=== PATIENT | female | born 2000 | race African-American/Black ===

== ENCOUNTER 2021-03-26 20:06 | Inpatient (IN) | payer OTHER ==
[2021-03-26] MEDS ORDERED: PROMETHAZINE HCL 25 MG/1 ML VIAL IVPUSH ONE (20:40)
[2021-03-26] MEDS ORDERED: BUTORPHANOL TARTRATE 2 MG/ML VIAL IVPUSH ONE (20:40)
[2021-03-26] MEDS ORDERED: OXYTOCIN 30 UNITS in 0.9% NS 30 UNIT/500 ML INFUS.BAG IVPB SCH (21:00)
[2021-03-26] MEDS: DEXTROSE 5%-LACTATED RINGERS 1,000 ML IV SCH (21:30)
[2021-03-26 21:47] LABS: BASO % 0.5 % (0-2.0); EOS % 4.5 % (0-4.5); HEMATOCRIT 29.7 % (32.4-45.2); LYMPH % 23.1 % (8-40); MCH 27.2 pg (25.7-33.7); MCHC 33.7 g/dl (32.0-36.0); MEAN CELL VOLUME 80.8 fl (80-96); MEAN PLT VOLUME 8.8 fl (7.5-11.1); MONO % 10.1 % (3.8-10.2); NEUT % 61.8 % (42.8-82.8); PLATELET COUNT 231 10^3/uL (134-434); RBC 3.68 M/mm3 (3.60-5.2); RDW 13.7 % (11.6-15.6); WHITE BLOOD COUNT 7.8 K/mm3 (4.0-10.0)
[2021-03-26 21:54] LABS: INR 0.97 (0.83-1.09)
[2021-03-26 21:57] LABS: ACTIVATED PTT 27.1 SECONDS (25.2-36.5)
[2021-03-26 22:07] VITALS: BMI 27.3
[2021-03-26 22:11] LABS: CALCIUM 8.8 mg/dL (8.5-10.1)
[2021-03-26 22:12] LABS: BLOOD UREA NITROGEN 4.6 mg/dL (7-18)
[2021-03-26 22:15] LABS: CREATININE 0.4 mg/dL (0.55-1.3)
[2021-03-27] MEDS: DEXTROSE 5%-LACTATED RINGERS 1,000 ML IV SCH (05:15)
[2021-03-27] MEDS ORDERED: PROMETHAZINE HCL 25 MG/1 ML VIAL ONE (08:49)
[2021-03-27] MEDS ORDERED: BUTORPHANOL TARTRATE 2 MG/ML VIAL ONE (08:49)
[2021-03-27] MEDS ORDERED: BUPIVACAINE HCL/PF 0.25% (2.5MG/ML) 10 ML VIAL ONE (15:07)
[2021-03-27] MEDS ORDERED: NALOXONE HCL 0.4 MG/ML VIAL IVPUSH PRN (15:48)
[2021-03-27] MEDS ORDERED: FENTANYL/BUPIVACAINE/NS/PF - PCEA - 50 ML DISP.SYRIN EP SCH (16:00)
[2021-03-27] MEDS ORDERED: FENTANYL/BUPIVACAINE/NS/PF - PCEA - 50 ML DISP.SYRIN EP ONE (16:16)
[2021-03-27] MEDS ORDERED: PCA PUMP NR ONE (16:17)
[2021-03-27] MEDS ORDERED: OXYTOCIN 20 UNITS in 0.9% NS 20 UNIT/1,000 ML INFUS.BAG IV ONE (16:46)
[2021-03-27] MEDS ORDERED: LIDOCAINE HCL 1% PRESERVATIVE FREE - 30ML VIAL ONE (16:46)
[2021-03-27] MEDS ORDERED: BISACODYL 10 MG SUPP.RECT RC PRN (17:36)
[2021-03-27] MEDS ORDERED: BENZOCAINE 28 GM HEMORRHOIDAL OINTMENT TP PRN (17:36)
[2021-03-27] MEDS ORDERED: WITCH HAZEL 50% (TUCKS) 40 PAD/JAR PAD TP PRN (17:36)
[2021-03-27] MEDS ORDERED: BENZOCAINE 20% 57 GM BOTTLE TP PRN (17:36)
[2021-03-27] MEDS ORDERED: IBUPROFEN 600 MG TABLET (FP) PO PRN (17:36)
[2021-03-27] MEDS ORDERED: ACETAMINOPHEN 325 MG TABLET (FP) PO PRN (17:36)
[2021-03-27] MEDS ORDERED: OXYTOCIN 20 UNITS in 0.9% NS 20 UNIT/1,000 ML INFUS.BAG IV SCH (17:45)
[2021-03-27 19:13] LABS: CORD BASE EXCESS -8.8 mmol/L (0-2); CORD HCO3 21.4 mmHg (20-29); CORD PCO2 63.7 mmHg (30-78); CORD pH 7.145 (7.14-7.44)
[2021-03-27 19:18] LABS: CORD BASE EXCESS -6.1 mmol/L (0-2); CORD HCO3 19.9 mmHg (20-29); CORD PCO2 41.3 mmHg (30-78); CORD pH 7.301 (7.14-7.44)
[2021-03-28 11:27] LABS: BASO % 0.4 % (0-2.0); EOS % 0.8 % (0-4.5); HEMATOCRIT 33.9 % (32.4-45.2); HEMOGLOBIN 11.1 GM/dL (10.7-15.3); LYMPH % 15.5 % (8-40); MCHC 32.8 g/dl (32.0-36.0); MEAN CELL VOLUME 82.3 fl (80-96); MEAN PLT VOLUME 9.6 fl (7.5-11.1); MONO % 6.8 % (3.8-10.2); NEUT % 76.5 % (42.8-82.8); PLATELET COUNT 228 10^3/uL (134-434); RBC 4.12 M/mm3 (3.60-5.2); RDW 14.1 % (11.6-15.6); WHITE BLOOD COUNT 15.3 K/mm3 (4.0-10.0)
[2021-03-28] MEDS ORDERED: SENNOSIDES/DOCUSATE COMBO (SENNA PLUS) TABLET (UD) PO PRN (22:00)
[2021-03-29 10:56] VITALS: BP 106/57; PULSE 81; TEMP 97.8
== END 2021-03-29 13:40 | disposition home or self-care (01) | DRG 560 ==
LOC: JLDR 20:06 → J3W 03-27 20:04
PROVIDERS: ADMIT Obstetrics & Gynecology; ATTEND Obstetrics & Gynecology
PROC: 10E0XZZ Delivery of Products of Conception, External Approach (ICD-10-PCS; principal; 2021-03-27)
PROC: 3E033VJ Introduction of Other Hormone into Peripheral Vein, Percutaneous Approach (ICD-10-PCS; 2021-03-27)
PROC: 10907ZC Drainage of Amniotic Fluid, Therapeutic from Products of Conception, Via Natural or Artificial Opening (ICD-10-PCS; 2021-03-27)
DX: O36.5930 Maternal care for other known or suspected poor fetal growth, third trimester, not applicable or unspecified (principal); O69.1XX0 Labor and delivery complicated by cord around neck, with compression, not applicable or unspecified; Z3A.38 38 weeks gestation of pregnancy; Z37.0 Single live birth
CPT/HCPCS: 36415; 36600; 59409; 80048; 82803; 85025; 85610; 85730; 86780; 86850; 86900; 86901; C9803; U0003; U0005